=== PATIENT | female | born 1990 | race Caucasian/White ===

== ENCOUNTER 2021-02-11 15:25 | Emergency (ER) | payer OTHER ==
[2021-02-11 17:07] LABS: HEMOGLOBIN 13.2 gm/dl (12.3-15.3); RED BLOOD COUNT 4.8 M/UL (4.00-5.10); WHITE BLOOD COUNT 8.3 K/UL (4.5-11.0)
[2021-02-11 17:43] LABS: BUN/CREATININE RATIO 14 (0-10)
== END 2021-02-11 21:24 | disposition home or self-care (01) ==
LOC: ER1 15:25
PROVIDERS: Physician Assistant Medical
DX: R07.89 Other chest pain (principal)
CPT/HCPCS: 71045; 80053; 82550; 82553; 83874; 84484; 85025; 85379; 93005; 99285

== ENCOUNTER 2021-07-18 09:41 | Emergency (ER) | payer OTHER ==
[2021-07-18 11:05] LABS: HEMOGLOBIN 13.6 gm/dl (12.3-15.3); RED BLOOD COUNT 5.03 M/UL (4.00-5.10); WHITE BLOOD COUNT 10.1 K/UL (4.5-11.0)
[2021-07-18 11:34] LABS: BUN/CREATININE RATIO 14 (0-10)
[2021-07-18] MEDS ORDERED: CEPHALEXIN500 M1 PO (15:44)
[2021-07-18] MEDS ORDERED: ONDANSETRON ODT4 MG SL (15:44)
[2021-07-18] MEDS ORDERED: CIPRO500 MG PO (15:53)
== END 2021-07-18 16:00 | disposition home or self-care (01) ==
LOC: ER1 09:41
PROVIDERS: Physician Assistant
DX: N39.0 Urinary tract infection, site not specified (principal); R19.7 Diarrhea, unspecified; K76.0 Fatty (change of) liver, not elsewhere classified; N83.202 Unspecified ovarian cyst, left side; Z20.822 Contact with and (suspected) exposure to COVID-19; Z88.0 Allergy status to penicillin
CPT/HCPCS: 0240U; 80053; 81001; 83690; 85025; 87086; 99284; J0461; Q9967